=== PATIENT | male | born 1940 | race Caucasian/White ===

== ENCOUNTER 2016-05-26 23:42 | Emergency (ER) | payer OTHER ==
[~2016-05-26] VITALS: Ht 177.8 cm; Wt 91.7 kg
[~2016-05-26 23:42] MED LIST: COUMADIN,JANTOVE1 MG PO; ENDOCET 5-3251 EACH PO; FEOSOL325 MG PO; Flonase BOTH NARES; HUMALOG100 UNITS/ SC; LANTUS 3 M100 UNITS/ SC; LEVEMIR100 UNIT/2 SC; LIDODERM 5% P1 PATCH TP; MEGACE20 MG PO; MOTRIN600 MG PO; NOVOLOG MI100 UNIT/M SC; Ocean Nasal 0.65% NS; SENOKOT S,PE1 TABLET PO; TRIAMTERENE-HC1 EAC1 PO; TYLENOL EXTRA500 MG PO; TYLENOL WITH C1 EACH PO; ZESTRIL20 MG PO
[2016-05-26 23:55] VITALS: BP 172/100
== END 2016-05-27 02:20 | disposition home or self-care (01) ==
LOC: EME 23:42
PROC: 3E0234Z Introduction of Serum, Toxoid and Vaccine into Muscle, Percutaneous Approach (ICD-10-PCS; principal; 2016-05-27)
DX: S80.211A Abrasion, right knee, initial encounter (principal); S40.012A Contusion of left shoulder, initial encounter; S63.501A Unspecified sprain of right wrist, initial encounter; W10.9XXA Fall (on) (from) unspecified stairs and steps, initial encounter; I10 Essential (primary) hypertension; E11.9 Type 2 diabetes mellitus without complications; Z88.8 Allergy status to other drugs, medicaments and biological substances; Z88.1 Allergy status to other antibiotic agents; Z88.6 Allergy status to analgesic agent; Z88.2 Allergy status to sulfonamides; Z88.5 Allergy status to narcotic agent
CPT/HCPCS: 73030; 73110; 73564; 99281; 99284

== ENCOUNTER → 2016-10-22 | Outpatient (CLI) | payer MEDICARE, OTHER | END | disposition home or self-care (01) | LOC: CDC 10:40 | DX: M79.641 Pain in right hand (principal); M18.11 Unilateral primary osteoarthritis of first carpometacarpal joint, right hand; I25.2 Old myocardial infarction | CPT/HCPCS: 93000 ==

== ENCOUNTER 2017-01-02 05:24 | Day surgery (SDC) | payer OTHER ==
[~2017-01-02] VITALS: Ht 175.3 cm; Wt 87.2 kg
[2017-01-02 06:11] VITALS: BP 184/91
[2017-01-02 06:27] LABS: POINT-OF-CARE METER ID UU14174212
[2017-01-02 07:32] LABS: METH RESISTANT S AUREUS PCR NEGATIVE (NEGATIVE)
[2017-01-02 07:42] LABS: PROBE CHECK PASS; SPECIMEN PROCESSING CONTROL PASS
[2017-01-02 09:23] LABS: POINT-OF-CARE METER ID UU13113675
[2017-01-02 09:51] VITALS: BP 206/110
[2017-01-02 10:15] VITALS: BP 171/79
[2017-01-02 11:00] VITALS: BP 188/91
[2017-01-02 12:20] VITALS: BP 173/86
== END 2017-01-02 12:20 | disposition home or self-care (01) ==
LOC: SDC 05:24
PROVIDERS: Orthopaedic Surgery; Surgery
PROC: 0RRT07Z Replacement of Left Carpometacarpal Joint with Autologous Tissue Substitute, Open Approach (ICD-10-PCS; principal; 2017-01-02)
DX: M19.042 Primary osteoarthritis, left hand (principal); I10 Essential (primary) hypertension; E11.9 Type 2 diabetes mellitus without complications; Z88.2 Allergy status to sulfonamides; Z88.0 Allergy status to penicillin
CPT/HCPCS: 82948; 87641; C1769; J0330; J1170; J2405; J3010; S0020